=== PATIENT | male | born 1960 | race Caucasian/White ===

== ENCOUNTER → 2018-01-21 11:10 | Outpatient (CLI) | payer OTHER, SELFPAY ==
--- NOTE | 2018-01-21 11:28 | EKG12_ITS ---
Test Reason : PRE-OP Blood Pressure : / mmHG Vent. Rate : 078 BPM Atrial Rate : 078 BPM P-R Int : 176 ms QRS Dur : 098 ms QT Int : 386 ms P-R-T Axes : 048 050 044 degrees QTc Int : 440 ms Normal sinus rhythm Normal ECG Confirmed by PRATIMA GRACIA, MORALES ([id number]), newspaper copy editor BOB MACHADO ([id number]) on 01/22/2018 9:24:44 AM Referred By: Kushal Macias Confirmed By:MORALES ANDUJAR MD
[2018-01-21 11:53] LABS: Hemoglobin 14.8 g/dl (13.0-16.5); Mean Corp Hgb Conc 33.6 g/gl (32-36); Mean Corpuscular Hgb 31.3 pg (27.0-32.0); Mean Platelet Vol. 9.6 fl (6.2-12.0); Platelet Count 236 K/mm3 (150-450); RBC Distribution Width CV 13.2 % (11.6-14.6); Red Blood Count 4.73 M/mm3 (4.6-6.2); White Blood Count 11.1 K/mm3 (4.4-11.0)
[2018-01-21 11:55] LABS: Scan Indicated on CBC? Y/N NO
[2018-01-21 12:07] LABS: Anion Gap 2 (5-15); BUN 13 mg/dL (7-18); BUN/Creat Ratio 14.6 RATIO (10-20); Calcium,Total 8.8 mg/dL (8.5-10.1); Chloride 108 mmol/L (98-107); Creatinine, Serum 0.89 mg/dL (0.70-1.30); EST Glomerular Filtration Rate 94 mL/min (>60); Est Glom Filt Rate - Afr Amer 114 mL/min (>60); Glucose 79 mg/dL (74-106); Potassium 4.2 mmol/L (3.5-5.1); Sodium Level 142 mmol/L (136-145)
== END ==
PROVIDERS: Visit Provider Physician Assistant Surgical
DX: Z01.810 Encounter for preprocedural cardiovascular examination (principal); Z01.818 Encounter for other preprocedural examination
CPT/HCPCS: 36415; 80048; 85027; 93005

== ENCOUNTER 2019-12-09 05:23 | Day surgery (SDC) | payer OTHER, SELFPAY ==
[2019-11-21 10:09] VITALS: BMI 43.6
--- NOTE | 2019-11-21 10:33 | HP_ITS ---
Intake Vital Signs 11/21/19 Height 5 ft 10 in 11/21/19 Weight: 304 lb 11/21/19 BP 155/88 H 11/21/19 Blood Pressure Location Rt brachial 11/21/19 Position Sitting 11/21/19 Respiration 20 H 11/21/19 Pulse 84 11/21/19 Pulse Source Monitor 11/21/19 Temp 98.5 F 11/21/19 Temp Source Oral 11/21/19 Pulse Oximetry (%) 92 11/21/19 Oxygen Delivery Method room air Intake Visit Reasons: CSCOPE Chief Complaint: c-scope consult Safety Technician Required: No Is patient in pain?: No Allergies No Known Allergies Allergy (Unverified 11/21/19 10:10) Medications albuterol sulfate 90 mcg/actuation aerosol inhaler 2 puff INHALATION Q6H PRN 11/21/19 [History Confirmed 11/21/19] atorvastatin 20 mg tablet 20 mg PO QHS 11/21/19 [History Confirmed 11/21/19] diclofenac sodium 75 mg tablet,delayed release 75 mg PO QHS tab 11/21/19 [History Confirmed 11/21/19] tiotropium bromide 1.25 mcg/actuation mist for inhalation 2 puff INHALATION DAILY 11/21/19 [History Confirmed 11/21/19] [facility] Medical History (Updated 11/21/19 @ 10:[address] Roe Winter MD) Umbilical hernia without obstruction and without gangrene (Acute) Morbid obesity due to excess calories (Acute) Personal history of colonic polyps (Acute) Arthritis (Acute) Emphysema (Acute) History of back problems (Acute) History of colon polyps (Acute) Hypercholesterolemia (Acute) SOB (shortness of breath) (Acute) COPD (chronic obstructive pulmonary disease) (Chronic) Surgical History (Updated 11/21/19 @ 10:06 by Grace Sam) history excision ganglion cyst left wrist (Acute) history left arm surgery (Acute) Family History (Updated 11/21/19 @ 10:08 by Grace Sam) Mother Diabetes Brother Diabetes Social History (Updated 11/21/19 @ 10:[address] Roe Winter MD) Smoking Status: Former smoker how long ago did patient quit smoking: two years alcohol intake: never substance use type: does not use HPI HPI HPI: NASEEM DORADO, is a 59 M who presents to the office today for HPI HPI Surgical H&P: Yes HPI: NASEEM DORADO, is a 59 M who presents to the office today for surgical consultation regarding a surveillance colonoscopy. The patient by history has her a previous history of colon polyp when he at age 52 had a colonoscopy. That was performed at [facility] and those records are no longer available due to closure of the hospital. He denies bright red blood per rectum or melena. He is referred by the [place] [facility]. He denies myocardial infarction or stroke. He claims that he is borderline diabetic. He does have COPD for long-term cigarette use. He currently chews tobacco. BMI is 43.6 with a body weight of 304 pounds ROS General General: Yes weight change; no appetite, fatigue, colon cancer, breast cancer or weakness HEENT HEENT: No difficulty swallowing, eye injury, eye surgery, swollen glands or hoarseness Endo Endocrine: No thyroid disease, diabetes mellitus, thyroid cancer, Hair loss, heat intolerance or cold intolerance Skin Skin: No rash or changing moles Breast Breast: No left breast lump, right breast lump, nipple discharge, breast pain, abnormal mammogram, abnormal US or breast enlargement Musc Musculoskeletal: Yes back problems and arthritis; no rheumatoid arthritis, gout or joint pain Cardio Cardiovascular: No murmur, pacemaker, heart disease, atrial fibrillation, high blood pressure, heart attack, heart stent, palpitations, shortness of breat with exertion or chest pain Psych Psychiatric: No depression, anxiety or hearing voices Resp Respiratory: Yes shortness of breath, No sleep apnea, Yes cough, Yes COPD, No asthma, Yes emphysema, No wheezing Gastro Gastrointestinal: No abdominal pain, No nausea or vomiting, No diarrhea, No constipation, No blood in stool, No acid reflux, No hemorrhoids, No ulcers, No gallbladder problem, No black,tarry stools [place] Hematologic: No blood thinners, No blood disorders, No bleeding, No anemia, No blood clots Neuro Neurologic: No system reviewed and no additional complaints, except as docu, No as per HPI, No abnormal walking, No abnormal hearing, No abnormal movements, No abnormal speech, No behavioral changes, No burning sensations, No confusion, No seizure-like activity, No unsteadiness, No dizziness, No localized weakness, No frequent falls, No headache(s), No lack of coordination, No loss of vision, No memory loss, No numbness, No other visual disturbances, No radiating pain, No restless legs, No sensory deficit, No fainting, No tingling, No tremor(s), No weakness, No other Exam Const General: cooperative, comfortable, no acute distress Nutritional Appearance: obese morbidly obese Orientation: alert, awake, oriented x3 HENMT Head: normal to inspection Chest Breast Palpation: No nipple discharge Resp Effort & Inspection: normal respiratory effort Auscultation: clear to auscultation bilaterally Cardio Rate: regular rate Rhythm: regular rhythm Heart Sounds: no murmurs GI Palpation: soft, no hepatosplenomegaly Auscultation: normal bowel sounds Other: Small nontender umbilical hernia Neuro Cognition: normal cognition Extrem Other: Nonpitting bilateral extremity edema noted Psych Affect: normal affect Assessment & Plan Problems 1. Personal history of colonic polyps Z86.010 2. Morbid obesity due to excess calories E66.01 3. Umbilical hernia without obstruction and without gangrene K42.9 Plan I recommended the patient a colonoscopy with possible biopsy or polypectomy as indicated. He is aware of the technique, benefit, risk of alternatives. Because of his body habitus we will provide extra bowel prep. I anticipate an adult scope with monitored anesthesia care. He has had an opportunity to ask and have questions answered. We will schedule and proceed at his discretion. Roe Winter M.D., F.A.C.S. Coding Level of Care Code Off vis,new,level 2 Diagnoses Personal history of colonic polyps Z86.010 Morbid obesity due to excess calories E66.01 Umbilical hernia without obstruction and without gangrene K42.9 11/21/19 1033 <Electronically signed by Roe jo MD> Date _ Roe Winter MD
[2019-12-09] VITALS (7 sets, daily range): BP systolic 106–135; BP diastolic 70–83; PULSE 75–88; RESP 14–16; TEMP 36.1; O2SAT 92–95; BMI 41.7
--- NOTE | 2019-12-09 05:49 | HP.PCM_ITS ---
Problem List (1) Personal history of colonic polyps Status: Acute History and Physical Date of Admission: 12/09/19 Intake Visit Reasons: CSCOPE Chief Complaint: c-scope consult Stock Mixer Required: No Is patient in pain?: No Allergies No Known Allergies Allergy (Unverified 11/21/19 10:10) Medications albuterol sulfate 90 mcg/actuation aerosol inhaler 2 puff INHALATION Q6H PRN 11/21/19 [History Confirmed 11/21/19] atorvastatin 20 mg tablet 20 mg PO QHS 11/21/19 [History Confirmed 11/21/19] diclofenac sodium 75 mg tablet,delayed release 75 mg PO QHS tab 11/21/19 [History Confirmed 11/21/19] tiotropium bromide 1.25 mcg/actuation mist for inhalation 2 puff INHALATION DAILY 11/21/19 [History Confirmed 11/21/19] [facility] Medical History (Updated 11/21/19 @ 10:[address] Roe Winter MD) Umbilical hernia without obstruction and without gangrene (Acute) Morbid obesity due to excess calories (Acute) Personal history of colonic polyps (Acute) Arthritis (Acute) Emphysema (Acute) History of back problems (Acute) History of colon polyps (Acute) Hypercholesterolemia (Acute) SOB (shortness of breath) (Acute) COPD (chronic obstructive pulmonary disease) (Chronic) Surgical History (Updated 11/21/19 @ 10:06 by Grace Sam) history excision ganglion cyst left wrist (Acute) history left arm surgery (Acute) Family History (Updated 11/21/19 @ 10:08 by Grace Sam) Mother Diabetes Brother Diabetes Social History (Updated 11/21/19 @ 10:[address] Roe Winter MD) Smoking Status: Former smoker how long ago did patient quit smoking: two years alcohol intake: never substance use type: does not use HPI HPI HPI: NASEEM DORADO, is a 59 M who presents to the office today for HPI HPI Surgical H&P: Yes HPI: NASEEM DORADO, is a 59 M who presents to the office today for surgical consultation regarding a surveillance colonoscopy. The patient by history has her a previous history of colon polyp when he at age 52 had a colonoscopy. That was performed at [facility] and those records are no longer available due to closure of the hospital. He denies bright red blood per rectum or melena. He is referred by the [place] [facility]. He denies myocardial infarction or stroke. He claims that he is borderline diabetic. He does have COPD for long-term cigarette use. He currently chews tobacco. BMI is 43.6 with a body weight of 304 pounds ROS General General: Yes weight change; no appetite, fatigue, colon cancer, breast cancer or weakness HEENT HEENT: No difficulty swallowing, eye injury, eye surgery, swollen glands or hoarseness Endo Endocrine: No thyroid disease, diabetes mellitus, thyroid cancer, Hair loss, heat intolerance or cold intolerance Skin Skin: No rash or changing moles Breast Breast: No left breast lump, right breast lump, nipple discharge, breast pain, abnormal mammogram, abnormal US or breast enlargement Musc Musculoskeletal: Yes back problems and arthritis; no rheumatoid arthritis, gout or joint pain Cardio Cardiovascular: No murmur, pacemaker, heart disease, atrial fibrillation, high blood pressure, heart attack, heart stent, palpitations, shortness of breat with exertion or chest pain Psych Psychiatric: No depression, anxiety or hearing voices Resp Respiratory: Yes shortness of breath, No sleep apnea, Yes cough, Yes COPD, No asthma, Yes emphysema, No wheezing Gastro Gastrointestinal: No abdominal pain, No nausea or vomiting, No diarrhea, No constipation, No blood in stool, No acid reflux, No hemorrhoids, No ulcers, No gallbladder problem, No black,tarry stools [place] Hematologic: No blood thinners, No blood disorders, No bleeding, No anemia, No blood clots Neuro Neurologic: No system reviewed and no additional complaints, except as docu, No as per HPI, No abnormal walking, No abnormal hearing, No abnormal movements, No abnormal speech, No behavioral changes, No burning sensations, No confusion, No seizure-like activity, No unsteadiness, No dizziness, No localized weakness, No frequent falls, No headache(s), No lack of coordination, No loss of vision, No memory loss, No numbness, No other visual disturbances, No radiating pain, No restless legs, No sensory deficit, No fainting, No tingling, No tremor(s), No weakness, No other Exam Const General: cooperative, comfortable, no acute distress Nutritional Appearance: obese morbidly obese Orientation: alert, awake, oriented x3 HENMT Head: normal to inspection Chest Breast Palpation: No nipple discharge Resp Effort & Inspection: normal respiratory effort Auscultation: clear to auscultation bilaterally Cardio Rate: regular rate Rhythm: regular rhythm Heart Sounds: no murmurs GI Palpation: soft, no hepatosplenomegaly Auscultation: normal bowel sounds Other: Small nontender umbilical hernia Neuro Cognition: normal cognition Extrem Other: Nonpitting bilateral extremity edema noted Psych Affect: normal affect Assessment & Plan Problems 1. Personal history of colonic polyps Z86.010 2. Morbid obesity due to excess calories E66.01 3. Umbilical hernia without obstruction and without gangrene K42.9 Plan I recommended the patient a colonoscopy with possible biopsy or polypectomy as indicated. He is aware of the technique, benefit, risk of alternatives. Because of his body habitus we will provide extra bowel prep. I anticipate an adult scope with monitored anesthesia care. He has had an opportunity to ask and have questions answered. We will schedule and proceed at his discretion. Roe Winter M.D., F.A.C.S. Coding Level of Care Code Off vis,new,level 2 Diagnoses Personal history of colonic polyps Z86.010 Morbid obesity due to excess calories E66.01 Umbilical hernia without obstruction and without gangrene K42.9 11/21/19 1033 <Electronically signed by Roe jo MD> Date _ Roe Winter MD I have re-examined the patient. There are no clinical changes since date of exam. Procedure Criteria Procedure Type: Elective COVID Risk Discussion: The surgeon/proceduralist and patient have discussed in detail the risk of exposure to and/or potential harm posed by the COVID-19 virus with having a surgery/procedure at this time versus the risk of delaying the surgery/procedure. It is not possible to know either the risk of delaying the surgery or procedure or chance of getting an infection with perfect accuracy, but a joint decision was made between the patient and the surgeon/proceduralist to proceed at this time with the scheduled surgery/procedure as indicated on the consent form.
[2019-12-09] MEDS: Lactated Ringers 1,000 ML 75 ML IV (06:08)
--- NOTE | 2019-12-09 06:30 | COLBX_PTH ---
PATIENT: NASEEM DORADO LOC: EN U#:[id number] AGE/SX: 59/M ROOM: RE12/09/[address]: Dr. Roe Winter MD : 1960 BED: DIS: 12/09/2019 SPEC #: [id number] RECD: 12/09/19 12:34 STATUS: ERIC JUAN ANTONIO #: [id number] FARHANA: 12/09/19 06:[address]: Roe Winter DEPT: SURGICAL PATHOLOGY RECD BY: Shelton Tineo ENTERED: 12/10/19 09:00 SP TYPE: COLON BX OTHR DR: [facility] Tissues: A - POLYP B - Rectum, NOS C - Rectum, NOS Procedures: Surgery Specimen Level IV HEADER OPERATION: Colonoscopy (MAC) PRE-OP DIAGNOSIS: History colon polyps TISSUE SUBMITTED: A - Hepatic flexure polyp biopsy, B - Proximal rectum polyp, C - Mid rectum polyp MICROSCOPIC DIAGNOSIS A. Hepatic flexure polyp, biopsy: Fragments of hyperplastic polyp. B. Proximal rectal polyp, biopsy: Fragments of tubulovillous adenoma. C. Mid rectal polyp, biopsy: Fragments of tubulovillous adenoma. Hyperplastic polyp. MARIA R:pita 12/11/19 MICROSCOPIC DESCRIPTION Slides are reviewed. GROSS DESCRIPTION A - Received in fixative is one container labeled with the patient's name and designated hepatic flexure polyp biopsy. The specimen consists of multiple irregular fragments of light santana soft tissue that in aggregate measure 0.6 x 0.2 x 0.1 cm. The specimen is totally submitted in one cassette. B -Received in fixative is one container labeled with the patient's name and designated proximal rectal polyp. The specimen consists of multiple irregular fragments of light santana soft tissue that in aggregate measure 1.5 x 0.6 x 0.2 cm. The specimen is totally submitted in one cassette. C - Received in fixative is one container labeled with the patient's name and designated mid rectal polyp. The specimen consists of multiple irregular fragments of light santana soft tissue that in aggregate measure 0.7 x 0.3 x 0.1 cm. The specimen is totally submitted in one cassette. / AM:pita 12/10/19 TC:1 CPT: 73695 x3
--- NOTE | 2019-12-09 07:05 | OP.COLON_ITS ---
Patient Name: Dl Tripp Procedure Date: 12/09/2019 5:34 AM Date of : 1960 Age: 59 Procedure: Colonoscopy Indications: High risk colon cancer surveillance: Personal history of colonic polyps Providers: Roe Winter MD Referring MD: [facility] Medicines: See the Anesthesia note for documentation of the administered medications Patient Profile: Last Colonoscopy: 2012. Complications: No immediate complications. Procedure: Pre-Anesthesia Assessment: - Prior to the procedure, a History and Physical was performed, and patient medications and allergies were reviewed. The patient's tolerance of previous anesthesia was also reviewed. The risks and benefits of the procedure and the sedation options and risks were discussed with the patient. All questions were answered, and informed consent was obtained. Prior Anticoagulants: The patient has taken no previous anticoagulant or antiplatelet agents. ASA Grade Assessment: II - A patient with mild systemic disease. After reviewing the risks and benefits, the patient was deemed in satisfactory condition to undergo the procedure. After I obtained informed consent, the scope was passed under direct vision. Throughout the procedure, the patient's blood pressure, pulse, and oxygen saturations were monitored continuously. The adult colonoscope was introduced through the anus and advanced to the cecum, identified by appendiceal orifice and ileocecal valve. The colonoscopy was performed with moderate difficulty due to the patient's body habitus. The patient tolerated the procedure well. The quality of the bowel preparation was good. The ileocecal valve was photographed. Scope In: 6:30:47 AM Scope Withdrawal Time 0 hours 10 minutes 49 seconds Scope Out: 6:57:30 AM Total Procedure Duration Time 0 hours 26 minutes 43 seconds Findings: Hemorrhoids were found on perianal exam. A 4 mm polyp was found in the hepatic flexure. The polyp was sessile. The polyp was removed with a cold biopsy forceps. Resection and retrieval were complete. A 10 mm polyp was found in the rectum. The polyp was pedunculated. The polyp was removed with a hot snare. Resection and retrieval were complete. A 5 mm polyp was found in the rectum. The polyp was sessile. The polyp was removed with a hot snare. Resection and retrieval were complete. Multiple diverticula were found in the sigmoid colon and descending colon. Impression: - Hemorrhoids found on perianal exam. - One 4 mm polyp at the hepatic flexure, removed with a cold biopsy forceps. Resected and retrieved. - One 10 mm polyp in the proximal rectum, removed with a hot snare. Resected and retrieved. - One 5 mm polyp in the mid rectum, removed with a hot snare. Resected and retrieved. - Diverticulosis in the sigmoid colon and in the descending colon. Recommendation: - Discharge patient to home. - Resume previous diet. - Continue present medications. - Telephone my office for pathology results in 1 week. - Repeat colonoscopy in 3 years for surveillance based on pathology results. Procedure Code(s): --- Professional --- 69147, Colonoscopy, flexible; with removal of tumor(s), polyp(s), or other lesion(s) by snare technique 71315, 59, Colonoscopy, flexible; with biopsy, single or multiple Diagnosis Code(s): --- Professional --- Z86.010, Personal history of colonic polyps K64.9, Unspecified hemorrhoids D12.3, Benign neoplasm of transverse colon (hepatic flexure or splenic flexure) K62.1, Rectal polyp K57.30, Diverticulosis of large intestine without perforation or abscess without bleeding CPT copyright 2017 [employer] [place] [employer]. All rights reserved. The codes documented in this report are preliminary and upon rope coiling machine operator review may be revised to meet current compliance requirements. Roe Winter MD 12/09/2019 7:05:17 AM This report has been signed electronically. Number of Addenda: 0 Note Initiated On: 12/09/2019 5:34 AM
--- NOTE | 2019-12-09 07:06 | OP.CCLET_ITS ---
12/09/2019 [facility] Re : Colonoscopy procedure for Dl [facility] This procedure was performed on Monday, December 09, 2019. My impressions and recommendations are as follows: Impressions : - Hemorrhoids found on perianal exam. - One 4 mm polyp at the hepatic flexure, removed with a cold biopsy forceps. Resected and retrieved. - One 10 mm polyp in the proximal rectum, removed with a hot snare. Resected and retrieved. - One 5 mm polyp in the mid rectum, removed with a hot snare. Resected and retrieved. - Diverticulosis in the sigmoid colon and in the descending colon. Recommendations : - Discharge patient to home. - Resume previous diet. - Continue present medications. - Telephone my office for pathology results in 1 week. - Repeat colonoscopy in 3 years for surveillance based on pathology results. My findings are described in the full procedure note, which is enclosed. If I can be of further assistance, please feel free to contact me at Doctor phone number(s): Work: . Sincerely, Roe Winter MD 12/09/2019 7:05:17 AM This report has been signed electronically.
== END 2019-12-09 07:54 | disposition home or self-care (01) ==
LOC: EN 05:24 → AC 05:25
PROVIDERS: Anesthesiology; Visit Provider Surgery
PROC: 0DJD8ZZ Inspection of Lower Intestinal Tract, Via Natural or Artificial Opening Endoscopic (ICD-10-PCS; CPT 45378; principal; 2019-12-09 06:25)
DX: Z12.11 Encounter for screening for malignant neoplasm of colon (principal); D12.3 Benign neoplasm of transverse colon; D12.8 Benign neoplasm of rectum; K57.30 Diverticulosis of large intestine without perforation or abscess without bleeding; K64.9 Unspecified hemorrhoids; K42.9 Umbilical hernia without obstruction or gangrene; J43.9 Emphysema, unspecified; M06.9 Rheumatoid arthritis, unspecified; E78.00 Pure hypercholesterolemia, unspecified; R73.09 Other abnormal glucose; E66.01 Morbid (severe) obesity due to excess calories; Z68.41 Body mass index [BMI] 40.0-44.9, adult; F17.220 Nicotine dependence, chewing tobacco, uncomplicated; Z79.899 Other long term (current) drug therapy; Z86.010 Personal history of colon polyps; Z11.59 Encounter for screening for other viral diseases
CPT/HCPCS: 45380; 45385; 87635; 88305; C9803; G2023; J7120; J2405; U0003

== ENCOUNTER → 2019-12-30 08:28 | Outpatient (CLI) | payer OTHER, SELFPAY ==
[2019-12-09 05:43] VITALS: BMI 41.7
--- NOTE | 2019-12-30 08:42 | PR.HP_ITS ---
History of Present Illness Arrival date:: 12/30/19 Arrival time:: 08:49 Date of Referral:: 12/05/19 Date of Evaluation: 12/30/19 Referring Physician: [facility] (Pulmonolgist) Primary Diagnosis: COPD EMPHYSEMA MODERATE mMRC Breathless Scale: When is the patient short of breath? Y/N Grade: Description of Breathlessness: 0 I only get breathless with strenuous exercise. 1 I get short of breath when hurrying on level ground or walking up a slight hill. 2 On level ground, I walk slower than people of the same age because of breathless, or have to stop for breath when walking at my own pace. 3 I stop for breath after walking 100 yards or after a few minutes on level ground. 4 I am too breathless to leave the house or I am breathless when dressing. Respiratory Problems: Yes: Fatigue, Wheezing, Able to Speak in Full Sentences, Panic, Dyspnea with Activity, Cough with Secretions No: Retain Secretions, Dizziness, Hoarseness, Anxiety, Dyspnea at Rest, Dyspnea Lying Down Flat Home Medications: Home Medications albuterol sulfate 90 mcg/actuation aerosol inhaler 2 puff INHALATION Q6H PRN 11/21/19 atorvastatin 20 mg tablet 20 mg PO QHS 11/21/19 diclofenac sodium 75 mg tablet,delayed release 75 mg PO QHS tab 11/21/19 tiotropium bromide 1.25 mcg/actuation mist for inhalation 2 puff INHALATION DAILY 11/21/19 Allergies/Adverse Reactions: Allergies No Known Allergies Allergy (Verified 12/04/19 12:08) - Secretions Normal Color:: CLEAR Thick:: Yes Thin:: No Amount/Day:: 1 TSP Cough:: Yes A.T.C.: Yes Hx of Sleep Apnea: No Do you snore loudly (louder than talking or can be heard through closed doors)?: Yes Do you often feel tired/ fatigued/ sleepy during daytime?: Yes Has anyone observed you stop breathing during sleep?: No History of Hypertension (for STOP score): Yes STOP Results: Positive Medical Utilization Do you use a peak flow meter at home?: No Do you use a spacer device with your inhalers?: Yes Number of hospital visits in the last year?: 0 - . Number of emergency room visits in the last year?: 0 Do you see your physician on a regular schedule?: Yes Advanced Directives - Advanced Directives Power of Corrosion Control Technician: No Living Will: No Advance Directives Information Provided: Yes Advance Directives on File: No DNR Order?:: No - MOLST See MOLST form: No Past Medical History Medical History: Past Medical History (Last Updated 11/21/19 @ 10:13 by Grace Sam) Umbilical hernia without obstruction and without gangrene (Acute) K42.9 Morbid obesity due to excess calories (Acute) E66.01 Personal history of colonic polyps (Acute) Z86.010 Arthritis M19.90 Emphysema History of back problems History of colon polyps Z86.010 Hypercholesterolemia E78.00 SOB (shortness of breath) R06.02 COPD (chronic obstructive pulmonary disease) J44.9 Surgical History: Past Surgical History (Last Updated 11/21/19 @ 10:06 by Grace Sam) history excision ganglion cyst left wrist history left arm surgery Family History: Family History (Last Updated 12/30/19 @ 08:53 by Azael Frost, LAWN CARE TECHNICIAN, COPY LATHE OPERATOR, BS) Mother Diabetes Brother Diabetes COPD (chronic obstructive pulmonary disease) Brother COPD (chronic obstructive pulmonary disease) - Current/ Previous Services Pulmonary Rehab:: No Social History - Smoking History Smoking Status: Former smoker Hx Smoking Cessation Date: 07/08/18 Hx Tobacco Use: Yes - 1 CAN CHEW WEEKLY Hx Smoking Exposure: Yes - Alcohol Use Alcohol Usage: No - Substance Abuse Hx Substance Use: No - Occupation Occupation (List type of work in comments):: Employed - SELF-EMPLOYED [employer] Hours worked per day:: 4 - Hobbies, Recreation, Social Activities Hobbies: Other Recreational Activities: I am able to engage in most, but not all activities - [employer] - [place] [employer] Functioning ADL/IADL - Current Ability Current Ability: Independent Self-Care (e.g.,grooming, dressing, & bathing), Independent Ambulation, Independent Transfer, Independent Household tasks (e.g., light meal prep, laundry, shopping) - Pt Functioning Prior to Problem Prior Functioning: Self-Care (e.g.,grooming, dressing, & bathing): Independent, Ambulation: Independent, Transfer: Independent, Household tasks (e.g., light meal prep, laundry, shopping): Independent Social Environment - Status Marital Status: - Current Living Arrangements Living Environment:: Family - Children How many children do you have?: 5 - 2 ADOPTED, 2 BIOLOGICAL, 1-STEP DAUGHTER Do any of your children live nearby?: Yes - Safety Do you feel safe in your surroundings?: Yes - Assistance Do you need any assistance at home?: NO Review of Systems Review of Systems: Right click = Denies (Slash). Left click = Reports (Stebbins) Respiratory: Reports: SOB upon Exertion, Wheezing, Appetite, Normal, Fatigue, Sleep, Normal. Denies: Cough, SOB at Rest, Sputum production, Dizziness/Lighthe adedness, Sexual changes Is Patient Pain Free?: Yes Pain Location: back, lower extremity - H/O LOWER BACK PROBLEMS, BILATERAL KNEE PAIN (ARTHRITIS) Pain Level: 08/18 Risk Factor Assessment - Chief Complaint Chief Complaint: 59 YR OLD MALE PATIENT OF THE [facility] WHO IS REFERRED TO [facility] FOR HIS COPD-EMPHYSEMA. - Vital Signs Temperature: 97.3 F Pulse Rate: 81 Pulse Rhythm: Regular Respiratory Rate: 16 Pulse Ox: 94 Blood Pressure: 122/76 Nailbeds:: PINK - Diabetes Nutrition Referral for Diabetes: No - Obesity Height: 5 ft 8.5 in Weight:: 287 lb 8 oz Weight in Pounds: 287.5 lbs Weight Source: Standing Scale Body Mass Index (BMI): 43.0 Nutritional Referral for Obesity: Yes - MORBID OBESITY - Physical Activity Physical Inactivity: None - PRETTY SEDENTARY - AZURE DEVELOPER FOR [facility] - Risk Stratification Risk Guidelines: Lowest Risk: Risk Factor for Dyslipidemia, Risk Factor for Diabetes, Moderate Risk: Risk Factor for Smoking - EVEN THOUGH PATIENT HAS QUIT SMOKING HE IS STILL USING TOBACCO/CHEW, Risk Factor for Sedentary Lifestyle - MODERATE TO HIGH RISK, Highest Risk: Risk Factor for Obesity, Risk Factor for Sedentary Lifestyle - For Smoking Smoking Risk Guidelines: Smoking Low Risk: None or quit greater than 6 months ago. Smoking Moderate Risk: Smoker or quit 6 months or less ago. Smoking High Risk: Smoker - For Dyslipidemia Dyslipidemia Risk Guidelines: Low Risk: Moderate Risk: High Risk: 15-25% fat 25.1-29% fat >/= 30% fat. <7% sat fat 7-9% sat fat >9% sat fat. <150 mg chol 150-299 mg chol >/= 300 mg chol. LDL <100 LDL 100-129 LDL >/= 130. Chol/HDL ratio <5.0 Chol/HDL ratio 5.0-6.0 Chol/HDL ratio >6.0. Triglycerides <100 Triglycerides 100-149 Triglycerides >/= 150 - For Diabetes Mellitus Diabetes Risk Guidelines: Diabetes Low Risk: HgA1c <6.5% and/or FBG <120. Diabetes Moderate Risk: HgA1c 6.6-7.9% and/or FBG 120-180. Diabetes High Risk: HgA1c >/= 8% and/or FBG >180 - For Obesity/Overweight Obesity/Overweight Risk Guidelines: Obesity Low Risk: BMI <25.0. Obesity Moderate Risk: BMI 25-29.9. Obesity High Risk: BMI >/= 30.0 - For Hypertension Hypertension Risk Guidelines: Hypertension Low Risk: Systolic <120 and Diastolic <80. Hypertension Moderate Risk: Systolic 120-139 and Diastolic 80-89. Hypertension High Risk: Systolic >/= 140 and Diastolic >/= 90 - For Sedentary Lifestyle Sedentary Lifestyle Risk Guidelines: Sedentary Lifestyle Low Risk: >/= 1,500 kcal/week. Sedentary Lifestyle Moderate Risk: 700-1,499 kcal/week. Sedentary Lifestyle High Risk: < 700 kcal/week - For Depression Depression Risk Guidelines: Depression Low Risk: Not clinically depressed. Depression Moderate Risk: Mildly depressed. Depression High Risk: Clinically depressed Motivation - Motivation to Participate On a scale of 1 to 10, how prepared are you to commit to attending program?: 7 - HONEST ANSWER What do you see as barriers to successfully being able to complete the program?: NOT REALLY ( [employer] WORK ROUTES IN MORING AND AFTERNOONS) What do you see as the benefits of succesfully completing the program? In other words, what do you hope to get out of participating in the program?: GETTING HEALTHIER, BEING ABLE TO COPE WITH THE BREATHING, HEALTHY Are there issues you are dealing with that will interfere with completing the program?: NO Do you have a spouse or signficant other, family or friends who will help support you to complete the program?: YES Diagnostic Data Review - Pulmonary Function Test FEV1:: 2.47 FVC:: 3.93 FEV1/FVC%:: 63 Gold Classification: GOLD class II(mod. COPD)with FEV1/FVC <70%, 50%</= FEV1< 50% predicted
--- NOTE | 2019-12-30 08:42 | PR.ITP_ITS ---
General Information - General Information Admitting Diagnosis: COPD-EMPHYSEMA Gold Classification:: GOLD 2: Moderate - PFT FEV1:: 2.47 FVC:: 3.93 FEV1/FVC%:: 63 - Education/Goals Barriers to Learning: Vision Impairment Individual Counseling: Initial Assessment: Dyspnea control techniques at rest, activity, and ADLs, Exacerbation prevention & management, Panic & depression management, Nutrition & weight management, Smoking cessation, Intimacy Patient Goals: Increase endurance/stamina: Initial Assessment, Return to recreation/hobby: Initial Assessment, Control panic/anxiety: Initial Assessment, Improve diet and nutrition: Initial Assessment, Symptom management: Initial Assessment, Take medications correctly: Initial Assessment, Improve weight: Initial Assessment Exercise - Initial Assessment - Visit Date of Eval: 12/30/19 - Problem/Goals Problems: Deconditioning, No regular exercise, Knowledge deficit exercise guidelines, Knowledge deficit exercise safety Goals:: Aerobic exercise 30-60 mins x 9 weeks, FL: 2-3/wk - Physician Prescribed Exercise Modalities: Treadmill, Airdyne, NuStep Frequency (days/week): 3 Duration (Minutes):: 30-45 Intensity: 60-80% of age predicted maximum heart rate reserve METs - Progression: 0.5-1.0 MET, RPE 11-14 WEEK: 3.0 - EKG: Normal Sinus Rhythm Target Heart Rate:: 105-138 - Plan Plan and Plan to Review:: Benefits of exercise, Core components of exercise, How to measure dyspnea level, How to monitor dyspnea level, Exercise intensity, Exercise safety guideline, Home exercise guidelines, Aida: 3-4/11-13 Disease Management - Initial - Problems/Goals-Hypoxemia Hypoxemia Goals:: Hypoxemia managed - Problems/Goals-Medications Medication Goals: Adherence to prescribed medications, Correct technique/timing & care of MDI, DPI, nebulizer, and spacer. - Problems/Goals-Bronchial Hygiene Bronchial Hygiene Problems:: Respiratory infection Prevention/Management Bronchial Hygiene Goals:: Pt describes signs and symptoms of infection. - Initial Assessment Medications: Yes MDI, Yes DPI, Yes Spacer, No NEB Patient Reports:: No cough - Plans Hypoxemia Plan:: Monitor SpO2 rest & with exercise, Train O2 safety & systems Reviewed prescribed medications:: Purpose, Schedule, Side effects, Importance of compliance Instruct correct technique/timing & care:: MDI, DPI, Nebulizer, Return demo use of inhaler Bronchial Hygiene Plan: Controlled cough, Vibratory PEP device, Role of exercise in secretion clearance, Hydration, Hand hygiene, Influenza/Pneumovax vaccines Psychosocial - Initial Assess - Problems/Goals Problems: Depression - DEPRESSION/PTSD - [place], Anxiety - PTSD - [place] Psychosocial Goals: Improved psychosocial coping skills., Verbalizes coping strategies., Adequate treatment of depression., Improved Q.O.L. - Psychosocial Test Depression:: Anxiety, Impaired QOL Tests Completed: SF - 36 survey completed, Mood Scale Test Referred to MD for counseling:: No - Plan Reviewed screening results: Yes Instructions given regarding:: Benefits of exercise, Relaxation techniques, Training in coping strategies Stress management: Receiving counseling Tobacco - Initial Assessment - Program Goals Tobacco Program Goals: Complete smoking cessation. Attend education classes. Improve Knowledge Test score - Stage of Change Stages of Change:: Action - Learning Barriers Learning Barriers: Vision, Ready to Learn - Family Support Do you have family support?: Yes - Tobacco Use Tobacco Use: Chew - 1-CAN WEEKLY QUIT SMOKING IN 2018. Do you use smokeless tobacco?: Yes - CHEW - Intervention Smoking Cessation Referral:: Yes - IMPORTANCE OF COMPLETE TOBACCO USE Individual Education/Counseling:: Yes Education Schedule Given:: Yes - Education Gave Education Materials For:: Tobacco Triggers, Pulmonary Disease, Risk Factors, Breathing Techniques, Medical Compliance, Pulmonary A&P, Exacerbation Signs & Symptoms, Stress & Relaxation Nutrition/Wt Mgmt - Initial - Problems/Goals Problems: Overweight Goals: Wt Loss 1-2 lbs per week, Waist circumference - Weight Management Knowledge Deficit Management of:: Overweight, Role of exercise in weight control, Weight control w/Prednisone - Diabetes Diabetes:: No - Intervention Referral to dietitian:: Yes - WHY WEIGHT PROGRAM WEIGHT LOSS, NUTRITIONAL THERAPY (HYPERCHOLESTEROLEMIA) Referral to Diabetic Clinic:: No Will attend diet classes:: Yes - Plan Nutrition Plan: Yes Review BMI or WC & identify target wt & strategies for wt control, Yes Nutrition education class:, Yes Weight control education class:, Yes Education re: Need for ongoing weight monitoring Patient Health Questionnaire Initial Assessment 1. Little interest or pleasure in doing things: Several days 2. Feeling down, depressed, or hopeless: Several days 3. Trouble falling or staying asleep, or sleeping too much: More than half the days 4. Feeling tired or having little energy: More than half the days 5. Poor appetite or overeating: More than half the days 6. Feeling bad about yourself -- or that you are a failure or have let yourself or your family down: More than half the days 7. Trouble concentrating on things, such as reading the newspaper or watching television: More than half the days 8. Moving or speaking so slowly that other people could have noticed. Or the opposite - being so fidgety or restless that you have been moving around a lot more than usual: Not at all 9. Thoughts that you would be better off , or of hurting yourself in some way: Not at all How difficult have these problems made it for you to do your work, take care of things at home, or get along with other people?: Somewhat difficult - TREATED BY [facility] FOR DEPRESSION (PTSD) Total Score: 12 COPD Knowledge Test Initial COPD is a lung disease that:: Makes it hard to breathe & gets worse over time In the [place] the term COPD describes 2 main lung conditions:: Emphysema & chronic bronchitis The most common lung irritant that causes COPD is:: Cigarette smoke Common signs and symptoms of COPD include:: An ongoing cough/cough that produces a large amount of mucus, & SOB If you have COPD, what steps can you take?: All of the above Swelling of the ankles is common in COPD:: False Fatigue [tiredness] is common in COPD:: True Wheezing is common in COPD:: True Crushing chest pain is common in COPD:: False Rapid weight loss is common in COPD:: False Breathlessness is a normal response to exercise: True Exercise should be avoided if it makes you short of breath: True All bronchodilators act within 10 minutes: True A spacer device increases the medication to the lungs: True Annual flu vaccine is recommended for pts w/lung disease: True COPD Knowledge Test Total Score:: 13 COPD Assessment Test [CAT] - Questions Never cough = 0, Cough all the time = 5: 3 No phlegm = 0, Chest full of phlegm = 5: 3 No chest tightness = 0, Chest very tight = 5: 3 No breathless w/exertion = 0, Very breathless w/exertion = 5: 3 No limitations w/activity = 0, Very limited w/activity = 5: 4 Confident leaving home = 0, Not at all confident = 5: 3 Sleep soundly = 0, Don't sleep soundly = 5: 3 Lots of energy = 0, No energy at all = 5: 3 Total CAT score:: 25 Self-Efficacy Initial Assessment We would like to know how confident you are in doing certain activities. Please select your confidence level for:: Select your confidence level for the following using the scale 1-10 where 1 is not at all confident and 10 is totally confident. Your score is the average of all 6 responses. Fatigue: How confident are you that you can keep the fatigue caused by your disease from interfering with the things you want to do? Select Number: 4 Physical Discomfort or Pain: How confident are you that you can keep the physical discomfort or pain of your disease from interfering with the things you want to do? Select Number: 4 Emotional Distress: How confident are you that you can keep the emotional distress caused by your disease from interfering with the things you want to do? Select Number: 3 Other Symptoms or Health Problems: How confident are you that you can keep other symptoms or health problems from interfering with the things you want to do? Select Number: 3 Different Tasks and Activities: How confident are you that you can do the different tasks and activities needed to manage your health condition so as to reduce your need to see a doctor? Select Number: 7 Medication: How confident are you that you can do things other than just taking medication to reduce how much your illness affects your everyday life? Select Number: 5 Total Score:: 4 Nutrition Survey - Nutrition Survey Instructions Scoring Instructions: Scoring is as follows: Yes = 1 points. No = 0 point. Patient score that is >/=12 is considered to be at potential nutritional risk and could benefit from a referral to a registered dietitian. - Nutrition Survey Initial Have you lost >10 lbs over the past 2 months without trying?: No Are you following a special diet at home for diabetes, low fat, or low salt?: No Are you interested in meeting with a dietitian for help understanding your diet?: No Do you eat less than 3 meals a day?: Yes Do you eat fatty meats (garay, sausage, ribs, etc), fried foods, desserts, large amounts of salad dressings, margarine, butter, or cheese most days?: Yes Do you have food allergies? [Enter types in comment field]: Yes - INTOLERANCE FOR MILK ONLY. Do you eat in restaurants more than 3 times a week?: Yes Do you season food with salt, seasoning salt, or garlic salt?: Yes Do you used canned, boxed, frozen meals, or soups, seasoning packets?: Yes Total Score:: 6
[2019-12-30 09:26] VITALS: BP 122/76; PULSE 81; RESP 16; TEMP 36.3; O2SAT 94; BMI 43.0
== END ==
DX: Z00.00 Encounter for general adult medical examination without abnormal findings (principal)

== ENCOUNTER 2020-01-05 09:02 | Outpatient (RCR) | payer OTHER, SELFPAY ==
[2019-12-30 09:26] VITALS: BMI 43.0
== END 2020-01-06 23:59 ==
LOC: PR 09:02
DX: J44.9 Chronic obstructive pulmonary disease, unspecified (principal)
CPT/HCPCS: 97150; G0424

== ENCOUNTER 2020-02-04 09:15 | Outpatient (RCR) | payer OTHER, SELFPAY ==
[2019-12-30 09:26] VITALS: BMI 43.0
== END 2020-02-06 23:59 ==
LOC: PR 09:15
DX: J44.9 Chronic obstructive pulmonary disease, unspecified (principal)
CPT/HCPCS: 97150; G0424

== ENCOUNTER 2020-03-01 09:15 | Outpatient (RCR) | payer OTHER, SELFPAY ==
[2019-12-30 09:26] VITALS: BMI 43.0
--- NOTE | 2020-03-01 08:18 | PCM.PR.TP ---
Exercise - 60-Day Assessment - Physician Prescribed Exercise Modalities: Treadmill, Airdyne, NuStep Frequency (days/week): 3 Duration (Minutes):: 30-45 Intensity: 60-80% of age predicted maximum heart rate reserve Aerobic Exercise [30-60 min 3-7x/week]:: Progressing Target heart rate: 105-138 Aida-13 METs - Progression: 0.5-1.0 MET, RPE 11-14 WEEK: 3.5 - Home Exercise Home Exercise:: No Disease Management - 60-Day - Hypoxemia Reassessment: Demonstrates knowledge of O2 Rx at rest, Demonstrates knowledge of O2 Rx with exercise, Using O2 as prescribed - Medications Medication list reviewed:: Yes Taking medications 100% of the time:: Met Medication reassessment: Yes Pt demonstrates correct technique timing for MDI, Yes Pt demonstrates correct technique timing for DPI, Yes Pt demonstrates correct technique timing for NEB, Yes Pt demonstrates correct technique timing for spacer - Bronchial Hygiene Bronchial Hygiene Plan: Yes Pt demonstrates correctly for effective cough, Yes Pt demo correct for device, Yes Pt demo correct for improved hydration, Yes Pt demo correct for hand hygiene, Yes Pt demo correct for verbalize when to call MD Psychosocial - 60-Day - Assessment Depression reassess: Management of stress: Progressing, Management of depression: Progressing, Practicing interventions: Progressing Tobacco - 60-Day Assessment - Program Goals Tobacco Program Goals: Complete smoking cessation. Attend education classes. Improve Knowledge Test score - Stage of Change Stages of Change:: Action - Learning Barriers Learning Barriers: Participates in education, Change in behavior - Family Support Do you have family support?: Yes - Tobacco Use Tobacco Use: Non-smoker Do you use smokeless tobacco?: No - Intervention Smoking Cessation Referral:: No Individual Education/Counseling:: No Education Schedule Given:: Yes - Education Gave Education Materials For:: Pulmonary Disease, Risk Factors, Breathing Techniques, Medical Compliance, Pulmonary A&P, Exacerbation Signs & Symptoms, Stress & Relaxation Nutrition/Wt Mgmt - 60-Day - Weight Management Weight Assessment:: Wt loss 1-2 lbs per week Weight:: 302 lb Weight Goals Progress:: Not progressing Patient Health Questionnaire 60-Day Re-eval Assessment 1. Little interest or pleasure in doing things: Several days 2. Feeling down, depressed, or hopeless: Not at all 3. Trouble falling or staying asleep, or sleeping too much: Several days 4. Feeling tired or having little energy: Several days 5. Poor appetite or overeating: Several days 6. Feeling bad about yourself -- or that you are a failure or have let yourself or your family down: Several days 7. Trouble concentrating on things, such as reading the newspaper or watching television: Several days 8. Moving or speaking so slowly that other people could have noticed. Or the opposite - being so fidgety or restless that you have been moving around a lot more than usual: Not at all 9. Thoughts that you would be better off , or of hurting yourself in some way: Not at all How difficult have these problems made it for you to do your work, take care of things at home, or get along with other people?: Somewhat difficult Total Score: 6 Self-Efficacy 60-Day Re-eval Assessment We would like to know how confident you are in doing certain activities. Please select your confidence level for:: Select your confidence level for the following using the scale 1-10 where 1 is not at all confident and 10 is totally confident. Your score is the average of all 6 responses. Fatigue: How confident are you that you can keep the fatigue caused by your disease from interfering with the things you want to do? Select Number: 5 Physical Discomfort or Pain: How confident are you that you can keep the physical discomfort or pain of your disease from interfering with the things you want to do? Select Number: 5 Emotional Distress: How confident are you that you can keep the emotional distress caused by your disease from interfering with the things you want to do? Select Number: 4 Other Symptoms or Health Problems: How confident are you that you can keep other symptoms or health problems from interfering with the things you want to do? Select Number: 4 Different Tasks and Activities: How confident are you that you can do the different tasks and activities needed to manage your health condition so as to reduce your need to see a doctor? Select Number: 8 Medication: How confident are you that you can do things other than just taking medication to reduce how much your illness affects your everyday life? Select Number: 7 Total Score:: 5
== END 2020-03-08 23:59 ==
LOC: PR 09:15
DX: J44.9 Chronic obstructive pulmonary disease, unspecified (principal)
CPT/HCPCS: 97150; G0424

== ENCOUNTER 2020-03-26 09:15 | Outpatient (RCR) | payer OTHER, SELFPAY ==
[2019-12-30 09:26] VITALS: BMI 43.0
--- NOTE | 2020-03-29 06:55 | PCM.PR.TP ---
Exercise - 60-Day Assessment - Physician Prescribed Exercise Modalities: Treadmill, Airdyne, NuStep Frequency (days/week): 3 Duration (Minutes):: 30-45 Intensity: 60-80% of age predicted maximum heart rate reserve Aerobic Exercise [30-60 min 3-7x/week]:: Progressing Target heart rate: 105-138 Aida-13 METs - Progression: 0.5-1.0 MET, RPE 11-14 WEEK: 4.0 - OXYGEN 2 LITERS - Home Exercise Home Exercise:: Yes Frequency:: DAILY Time (minutes):: 30 - WALKING Disease Management - 60-Day - Hypoxemia Reassessment: Demonstrates knowledge of O2 Rx at rest, Demonstrates knowledge of O2 Rx with exercise - Medications Medication list reviewed:: Yes Taking medications 100% of the time:: Met Medication reassessment: Yes Pt demonstrates correct technique timing for MDI, Yes Pt demonstrates correct technique timing for DPI, Yes Pt demonstrates correct technique timing for NEB, Yes Pt demonstrates correct technique timing for spacer - Bronchial Hygiene Bronchial Hygiene Plan: Yes Pt demonstrates correctly for effective cough, Yes Pt demo correct for device, Yes Pt demo correct for NS nasal spray, Yes Pt demo correct for improved hydration, Yes Pt demo correct for hand hygiene, Yes Pt demo correct for verbalize when to call MD Psychosocial - 60-Day - Assessment Depression reassess: Management of stress: Progressing, Management of depression: Progressing, Practicing interventions: Progressing Tobacco - 60-Day Assessment - Program Goals Tobacco Program Goals: Complete smoking cessation. Attend education classes. Improve Knowledge Test score - Stage of Change Stages of Change:: Action - Learning Barriers Learning Barriers: Participates in education - Family Support Do you have family support?: Yes - Tobacco Use Tobacco Use: Non-smoker Do you use smokeless tobacco?: No - Intervention Smoking Cessation Referral:: No Individual Education/Counseling:: Yes Education Schedule Given:: Yes - Education Gave Education Materials For:: Pulmonary Disease, Risk Factors, Breathing Techniques, Medical Compliance, Pulmonary A&P, Exacerbation Signs & Symptoms, Stress & Relaxation Nutrition/Wt Mgmt - 60-Day - Weight Management Weight Assessment:: Wt loss 1-2 lbs per week Weight:: 307 lb - BMI Weight Goals Progress:: Not progressing Patient Health Questionnaire 60-Day Re-eval Assessment 1. Little interest or pleasure in doing things: Several days 2. Feeling down, depressed, or hopeless: Several days 3. Trouble falling or staying asleep, or sleeping too much: Not at all 4. Feeling tired or having little energy: Several days 5. Poor appetite or overeating: Several days 6. Feeling bad about yourself -- or that you are a failure or have let yourself or your family down: Several days 7. Trouble concentrating on things, such as reading the newspaper or watching television: Several days 8. Moving or speaking so slowly that other people could have noticed. Or the opposite - being so fidgety or restless that you have been moving around a lot more than usual: Not at all 9. Thoughts that you would be better off , or of hurting yourself in some way: Not at all Total Score: 6 Self-Efficacy 60-Day Re-eval Assessment We would like to know how confident you are in doing certain activities. Please select your confidence level for:: Select your confidence level for the following using the scale 1-10 where 1 is not at all confident and 10 is totally confident. Your score is the average of all 6 responses. Fatigue: How confident are you that you can keep the fatigue caused by your disease from interfering with the things you want to do? Select Number: 7 Physical Discomfort or Pain: How confident are you that you can keep the physical discomfort or pain of your disease from interfering with the things you want to do? Select Number: 7 Emotional Distress: How confident are you that you can keep the emotional distress caused by your disease from interfering with the things you want to do? Select Number: 6 Other Symptoms or Health Problems: How confident are you that you can keep other symptoms or health problems from interfering with the things you want to do? Select Number: 6 Different Tasks and Activities: How confident are you that you can do the different tasks and activities needed to manage your health condition so as to reduce your need to see a doctor? Select Number: 9 Medication: How confident are you that you can do things other than just taking medication to reduce how much your illness affects your everyday life? Select Number: 8 Total Score:: 7
== END 2020-04-07 23:59 ==
LOC: PR 09:15
DX: J44.9 Chronic obstructive pulmonary disease, unspecified (principal)
CPT/HCPCS: 97150; G0424

== ENCOUNTER 2020-04-16 06:12 | Outpatient (RCR) | payer OTHER, SELFPAY ==
[2019-12-30 09:26] VITALS: BMI 43.0
== END 2020-05-08 23:59 ==
LOC: PR 06:12
DX: J44.9 Chronic obstructive pulmonary disease, unspecified (principal)
CPT/HCPCS: 97150; G0424

== ENCOUNTER 2023-01-02 05:51 | Day surgery (SDC) | payer OTHER, SELFPAY ==
--- NOTE | 2023-01-02 06:05 | PCM.HP.BLA ---
History and Physical Date of Admission: 01/02/23 Visit Reasons:?COLONOSCOPY Chief Complaint: c-scope consult Allergies No Known Allergies Allergy (Verified 12/04/19 12:08) PFS Medical History? Arthritis COPD (chronic obstructive pulmonary disease) Emphysema History of back problems History of colon polyps Hypercholesterolemia Morbid obesity due to excess calories Personal history of colonic polyps SOB (shortness of breath) Umbilical hernia without obstruction and without gangrene Surgical History?(Updated 01/25/22 @ 21:20 by Scott Harrison) history excision ganglion cyst left wrist history left arm surgery Family History? Mother DiabetesBrother Diabetes COPD (chronic obstructive pulmonary disease)Brother COPD (chronic obstructive pulmonary disease) Social History? Smoking Status:? Former smoker how long ago did patient quit smoking:? two years alcohol intake:? never substance use type:? does not use HPI HPI HPI: 62-year-old gentleman is referred by the [place] [facility] for consideration of a colonoscopy.? A written compromise surgical consult recommendations will return to them.? The patient's most recent colonoscopy was December 2019 with recommendations for repeat at 3 years.? He does have a personal history of colon polyps.? I had personally performed his most recent colonoscopy and detected a polyp at the hepatic flexure proximal rectum and mid rectum.? The adult colonoscope was used and moderate difficulty encountered secondary to the patient's body habitus.? 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 Not been hospitalized over the past year.? He is currently being evaluated for sleep apnea.? He denies chest pain or shortness of breath.? He feels that his health has been stable and that he has been cruising along.? He denies any history of DVT.? He is on a low-dose aspirin. ROS General General: No weight change, appetite, fatigue, colon cancer, breast cancer or weakness HEENT HEENT: No difficulty swallowing, eye injury, eye surgery, swollen glands or hoarseness Endo Endocrine: Yes diabetes mellitus; No thyroid disease, thyroid cancer, Hair loss, heat intolerance or cold intolerance Skin Skin: No rash or changing moles Breast Breast: No left breast lump, right breast lump, nipple discharge, breast pain, abnormal mammogram, abnormal US or breast enlargement Musc Musculoskeletal: Yes back problems and arthritis; No rheumatoid arthritis, gout or joint pain Cardio Cardiovascular: No murmur, pacemaker, heart disease, atrial fibrillation, high blood pressure, heart attack, heart stent, palpitations, shortness of breat with exertion or chest pain Psych Psychiatric: No depression, anxiety or hearing voices Resp Respiratory: Yes shortness of breath, No sleep apnea, No cough, Yes COPD, No asthma, Yes emphysema and No wheezing Gastro Gastrointestinal: No abdominal pain, No nausea or vomiting, No diarrhea, No constipation, No blood in stool, No acid reflux, No hemorrhoids, No ulcers, No gallbladder problem and No black,tarry stools [place] Hematologic: No blood thinners, No blood disorders, No bleeding, No anemia and No blood clots Neuro Neurologic: No system reviewed and no additional complaints, except as documented, No as per HPI, No abnormal gait, No abnormal hearing, No abnormal movements, No abnormal speech, No behavioral changes, No burning sensations, No confusion, No convulsions, No disequilibrium, No dizziness, No localized weakness, No frequent falls, No headache(s), No lack of coordination, No loss of vision, No memory loss, No numbness, No other visual disturbances, No radicular pain, No restless legs, No sensory deficit, No syncope, No tingling, No tremor(s), No weakness and No other Exam Const General: cooperative, comfortable and no acute distress Nutritional Appearance: obese morbidly obese Orientation: alert and awake [facility] Head: normal to inspection Eyes General: appearance normal, both eyes and all related structures Neck Neck: normal visual inspection Resp Effort & Inspection: normal respiratory effort Auscultation: clear to auscultation bilaterally Cardio Rate: regular rate Rhythm: regular rhythm GI Palpation: soft and no hepatosplenomegaly Skin Other: Diffuse areas of excoriation bilateral arms well-healed Neuro General: patient alert, patient awake and patient oriented x3 Extrem General: no calf tenderness Psych Appearance: grossly normal Assessment and Plan Assessment and Plan (1) Personal history of colonic polyps: ?Status:?Acute ?Plan: I recommend to the patient that we schedule him for a surveillance colonoscopy with possible biopsy or polypectomy as indicated.? Very careful inspection of the rectal area will be pursued.? He is aware of the technique, benefit, risk, alternatives.? I very much appreciate the opportunity to continue to assist with his surgical care.? As noted the patient is awaiting results of his sleep apnea test.? We will use monitored anesthesia care.? Additionally anticipate utilizing an adult colonoscope.? I appreciate the ongoing opportunity of assisting with the surgical care. Copy: [facility] Roe Winter M.D., F.A.C.S. I have examined the patient and the H&P has been reviewed. There are no clinical changes since date of exam. Roe Winter M.D., F.A.C.S.
[2023-01-02 06:28] VITALS: BP 133/81; PULSE 75; RESP 18; TEMP 36.7; O2SAT 95; BMI 41.8
[2023-01-02] MEDS: Lactated Ringers 1,000 ML 15 ML IV (06:31)
[2023-01-02 06:50] LABS: Bedside Glucose 128 mg/dL (74-106)
[2023-01-02 07:26] VITALS: BP 133/81; BP 134/83; PULSE 84; RESP 18; TEMP 36.6; O2SAT 93
--- NOTE | 2023-01-02 07:26 | OP.CCLET_ITS ---
01/02/2023 [facility] Re : Colonoscopy procedure for [facility] This procedure was performed on Monday, January 02, 2023. My impressions and recommendations are as follows: Impressions : - Non-thrombosed external hemorrhoids, non-thrombosed internal hemorrhoids and internal hemorrhoids that prolapse with straining, but spontaneously regress to the resting position (Grade II) found on digital rectal exam. - Diverticulosis in the sigmoid colon. - No specimens collected. Recommendations : - Discharge patient to home. - Resume previous diet. - Continue present medications. - Repeat colonoscopy in 5 years for surveillance. My findings are described in the full procedure note, which is enclosed. If I can be of further assistance, please feel free to contact me at Doctor phone number(s): Work: . Sincerely, Roe Winter MD 01/02/2023 7:25:56 AM This report has been signed electronically.
--- NOTE | 2023-01-02 07:26 | OP.COLON_ITS ---
Patient Name: Dl Tripp Procedure Date: 01/02/2023 7:01 AM Date of : 1960 Age: 62 Procedure: Colonoscopy Indications: High risk colon cancer surveillance: Personal history of colonic polyps Providers: Roe Winter MD Referring MD: Roe Winter MD Medicines: See the Anesthesia note for documentation of the administered medications Patient Profile: Last Colonoscopy: within the past 3 years. Complications: No immediate complications. Procedure: Pre-Anesthesia Assessment: - Prior to the procedure, a History and Physical was performed, and patient medications and allergies were reviewed. The patient's tolerance of previous anesthesia was also reviewed. The risks and benefits of the procedure and the sedation options and risks were discussed with the patient. All questions were answered, and informed consent was obtained. Prior Anticoagulants: The patient has taken no previous anticoagulant or antiplatelet agents. ASA Grade Assessment: II - A patient with mild systemic disease. After reviewing the risks and benefits, the patient was deemed in satisfactory condition to undergo the procedure. After I obtained informed consent, the scope was passed under direct vision. Throughout the procedure, the patient's blood pressure, pulse, and oxygen saturations were monitored continuously. The adult colonoscope was introduced through the anus and advanced to the cecum, identified by appendiceal orifice and ileocecal valve. The colonoscopy was somewhat difficult due to a tortuous colon. The patient tolerated the procedure well. The quality of the bowel preparation was good. Scope In: 7:04:32 AM Scope Withdrawal Time 0 hours 10 minutes 35 seconds Scope Out: 7:22:01 AM Total Procedure Duration Time 0 hours 17 minutes 29 seconds Findings: The digital rectal exam findings include non-thrombosed external hemorrhoids, non-thrombosed internal hemorrhoids and internal hemorrhoids that prolapse with straining, but spontaneously regress to the resting position (Grade II). Scattered diverticula were found in the sigmoid colon. Impression: - Non-thrombosed external hemorrhoids, non-thrombosed internal hemorrhoids and internal hemorrhoids that prolapse with straining, but spontaneously regress to the resting position (Grade II) found on digital rectal exam. - Diverticulosis in the sigmoid colon. - No specimens collected. Recommendation: - Discharge patient to home. - Resume previous diet. - Continue present medications. - Repeat colonoscopy in 5 years for surveillance. Procedure Code(s): --- Professional --- 78600, Colonoscopy, flexible; diagnostic, including collection of specimen(s) by brushing or washing, when performed (separate procedure) Diagnosis Code(s): --- Professional --- Z86.010, Personal history of colonic polyps K64.1, Second degree hemorrhoids K64.4, Residual hemorrhoidal skin tags K57.30, Diverticulosis of large intestine without perforation or abscess without bleeding CPT copyright 2017 [employer]. All rights reserved. The codes documented in this report are preliminary and upon digital product specialist review may be revised to meet current compliance requirements. Roe Winter MD 01/02/2023 7:25:56 AM This report has been signed electronically. Number of Addenda: 0 Note Initiated On: 01/02/2023 7:01 AM
[2023-01-02 07:30] VITALS: BP 133/81; BP 139/73; PULSE 84; RESP 18; O2SAT 92
[2023-01-02 07:35] VITALS: BP 133/81; BP 137/74; PULSE 84; RESP 18; O2SAT 95
[2023-01-02 07:37] VITALS: BP 122/81; BP 133/81; PULSE 87; RESP 20; TEMP 36.7; O2SAT 93
[2023-01-02 07:54] VITALS: BP 133/81
== END 2023-01-02 08:09 | disposition home or self-care (01) ==
LOC: EN 05:51 → AC 05:52
PROVIDERS: Visit Provider Surgery
PROC: 0DJD8ZZ Inspection of Lower Intestinal Tract, Via Natural or Artificial Opening Endoscopic (ICD-10-PCS; CPT 45378; principal; 2023-01-02 06:55)
DX: Z12.11 Encounter for screening for malignant neoplasm of colon (principal); J44.9 Chronic obstructive pulmonary disease, unspecified; E66.01 Morbid (severe) obesity due to excess calories; E11.9 Type 2 diabetes mellitus without complications; K64.4 Residual hemorrhoidal skin tags; K57.30 Diverticulosis of large intestine without perforation or abscess without bleeding; K64.1 Second degree hemorrhoids; Z86.010 Personal history of colon polyps; Z87.891 Personal history of nicotine dependence; E78.00 Pure hypercholesterolemia, unspecified; Z79.84 Long term (current) use of oral hypoglycemic drugs; Z79.82 Long term (current) use of aspirin; Z79.899 Other long term (current) drug therapy
CPT/HCPCS: 45378; 82962; J7120